=== PATIENT | male | born 1955 | race Caucasian/White ===

== ENCOUNTER 2017-07-25 06:55 | Inpatient (IN) | payer OTHER, SELFPAY ==
[2017-07-19 13:25] VITALS: BP 134/74; PULSE 65; RESP 16; TEMP 36.7; O2SAT 98; BMI 23.7
--- NOTE | 2017-07-19 13:29 | EKG12_ITS ---
Test Reason : Blood Pressure : / mmHG Vent. Rate : 069 BPM Atrial Rate : 069 BPM P-R Int : 134 ms QRS Dur : 088 ms QT Int : 402 ms P-R-T Axes : 041 004 046 degrees QTc Int : 430 ms Normal sinus rhythm Low voltage QRS Borderline ECG Confirmed by PIO KASPER, DMITRY ([id number]), editor news DAMIAN PIÑA ([id number]) on 07/23/2017 2:33:28 PM Referred By: Richard Ordoñez Confirmed By:DMITRY SUERO MD
[2017-07-25] VITALS (11 sets, daily range): BP systolic 110–156; BP diastolic 62–98; PULSE 48–73; RESP 14–18; TEMP 36.1–36.9; O2SAT 93–100; BMI 23.7; BMI 22.8
--- NOTE | 2017-07-25 | PROST_PTH ---
PATIENT: VIKTOR GAINES LOC: MS2 U#:[id number] AGE/SX: 62/M ROOM: [id number] RE07/25/[address]: Dr. Richard Ordoñez MD : [id number] BED: 1 DIS: 07/27/2017 SPEC #: [id number] RECD: 07/25/17 14:29 STATUS: ALLIE REYannick #: [id number] NICK: 07/25/17 00:[address]: Richard Ordoñez DEPT: SURGICAL PATHOLOGY RECD BY: Noe Soria ENTERED: 07/25/17 14:30 SP TYPE: PROSTATE OTHR DR: Dr. Telly Soto, DO Tissues: Prostate, NOS Procedures: Surgery Specimen Level HEADER OPERATION: Laparoscopic robotic prostatectomy, radical PRE-OP DIAGNOSIS: Prostate cancer, elevated PSA, BPH with obstruction TISSUE SUBMITTED: Prostate MICROSCOPIC DIAGNOSIS Prostate, radical prostatectomy: Prostatic adenocarcinoma. See cancer summary below. PROSTATE CANCER (RADICAL) SUMMARY: Procedure ? radical prostatectomy Prostate size ? 6 cm transversely, craniocaudally 4.5 cm and anterior-posteriorly 4.5 cm Prostate weight ? 97 gm Lymph node sampling ? no lymph nodes present Histologic type ? adenocarcinoma (acinar, not otherwise specified) Histologic grade (Babak Pattern): Primary pattern - 3 Secondary pattern - 3 Tertiary pattern - 6 Total Blairs score: Tumor Quantitation: Proportion (%) of prostate involved by tumor - <5% Tumor size ? left lobe 1 x 0.6 cm, right lobe 0.1 x 0.1 cm (measured microscopically for both right and left lobes). See comment. Extraprostatic extension ? not identified Seminal vesicle invasion - not identified Margins ? Apical margin focally involved by invasive carcinoma (right lobe). Treatment effect on carcinoma ? no known presurgical therapy. Lymph-Vascular invasion - not identified Perineural invasion ? present, focal and minimal Regional lymph nodes ? no lymph nodes submitted or found. Distant metastasis ? not applicable Additional pathologic findings ? high-grade prostatic intraepithelial neoplasia (HGPIN). - Chronic inflammation and atrophy. - Benign prostatic hyperplasia, glandular and stromal type. Ancillary studies ? not performed. PATHOLOGIC STAGE: pT2c pNx Mx The above summary is in compliance with [employer] [place] [employer] (CAP) Cancer Protocols Checklist and [place] Joint Committee on Cancer (AJCC), Staging Manual, 8th Ed. SJ:fidelia 07/27/17 COMMENT The tumor is present in the right lobe at the apical margin (block 2) and in the left lobe (slides 5, 7 and 9). Please make reference to previous specimen ([id number]) left prostate, base, core biopsy with diagnosis of adenocarcinoma. Case has been reviewed in consultation with Dr. Vazquez who concurs with the above diagnosis. IDC:AM MICROSCOPIC DESCRIPTION Slides are reviewed. GROSS DESCRIPTION Received in fixative is one container labeled with the patient's name and designated prostate. The specimen consists of a radical prostatectomy specimen weighing 97 gm. The prostate measures transversely 6 cm, craniocaudally 4.5 cm and anteroposteriorly 4.5 cm. The right seminal vesicle measures 2 x 1.5 x 0.5 cm and the right vas deferens measures 3 cm in length and 0.5 cm in diameter. The left seminal vesicle measures 2 x 1.5 x 0.5 cm and the left vas deferens measures 4 cm in length and 0.5 cm in diameter. The external surface including base of prostate is inked as follows: posterior surface prostate ? black, anterior surface ? yellow, right lateral surface including base? blue, left lateral surface including base ? green. The seminal vesicles are inked as follows: right seminal vesicle and vas deferens posterior surface ? black, anterior surface ? blue, left seminal vesicle and vas deferens posterior surface ? black, anterior surface ? green. Serial sections of the prostate reveal markedly enlarged right lobe pushing towards the left lobe. No mass lesion is identified. Damage Adjuster sections are submitted in 20 cassettes as follows: 1 ? right and left seminal vesicle and vas deferens, 2 ? apical margin enface, 3 ? bladder base margin enface, 4-9 ? prostate apical portion, 10-14 ? prostate middle portion, 15-20 ? prostate basal portion (cassettes 19 & 20 contains the most basal portion of the prostate). / SJ:fidelia 07/26/17 TC:0 CPT: 44996
[2017-07-25] MEDS: Cefazolin 2 GM in 0.9% Normal Saline 100 ML IV (08:44)
[2017-07-25] MEDS: Bupivacaine Mpf 0.5% 30 ML VIAL (13:09)
--- NOTE | 2017-07-25 13:10 | PCM.OPRPT ---
Problem List (1) Prostate cancer Status: Acute Report of Operation Date of Procedure: 07/25/17 Pre-Operative Diagnosis: Prostate cancer very large prostate Post-Operative Diagnosis: Same Surgery/Procedure Performed:: Laparoscopic robotic assisted radical prostatectomy. EMG monitoring the pelvic lymph nodes and the urethral sphincter. Suture suspension of the urethra to prevent urinary incontinence. Reconstruction of bladder neck Description of Surgical Findings:: 62-year-old male taken back to the operating room at the smooth induction of general anesthesia he is placed in dorsal lithotomy position we made a small incision above his umbilicus the abdomen was prepped and draped in usual sterile fashion. With a sick Veress needle into this into the peritoneal cavity and insufflated the peritoneal cavity with CO2 gas I then placed my camera trocar my right arm trocar left arm trocar and my second trocar we then docked the robot immediately getting into the abdomen there is some some adhesions from prior hernia surgery repair extensive amount of mesh then lay down more than expected throughout the lower abdomen after this was dissected out then I went posteriorly identify the right seminal vesicle traced this down to the vas deferens and dissected out the vas deferens and seminal vesicles in the right side posteriorly in the dissected out the left breast left seminal vesicle left vas deferens posteriorly. I then pulled out of the pelvis and then we incised the bladder flap and then entered the space of Retzius and dissected the bladder off the anterior abdominal wall again mesh had been laid down and extensively in the anterior abdominal wall almost way down to the pubic bone had to dissect the bladder off his mesh took quite some time to do this finally placed the bladder on traction with the fourth arm dissected the space above the prostate I then used the bipolar on the superficial dorsal vein I incised the right pelvic fascia over the prostate and dissected the prostate off the levator muscles I incised the left puboprostatic fascia and dissected the left side of the prostate off the of the levator muscles then I went and transected through the prostatic ligaments and the right side and the left side I then placed a stitch in the dorsal vein complex prostate was very large extremely large prostate. I then pulled back to the junction between the bladder and prostate switched to 30 down degree lens and then dissected between the bladder and the prostate and doing this and created a very large bladder neck in order to remove the entire prostate bladder neck was extremely large I did identify the right and left ureteral orifice also the bladder was quite large and floppy seems very stretched out from a chronic bladder outlet obstruction. After dissecting through the prostate and the bladder I got to the junction of the bladder and prostate posteriorly dissected down until I encountered the seminal vesicles and vas deferens then on the right side we pulled the prostate laterally I inside the swept the neurovascular bundles of the right side of the prostate took the pedicle with clips and then was able to sweep the neurovascular bundle off the right side of prostate sparing the nerve bundles on the right side very nicely we did monitor the nerves the pelvic nerves with EMG monitor placed a needle electrode into the abdomen needle electrode into the levator muscles and then stimulated and had an action potential and identified the the plexus of nerves on the right side and then same thing on the left side the same thing on the left side identify the plexus of nerves in the left side using EMG monitoring. Once both sides identified then I went back to the left side and transected through the pedicle the left side and then dissected the the neurovascular bundle off the left side the left side was more stuck could not really get his as much of a good dissection of the neurovascular bundle but the right side came up fairly nicely then went posteriorly and dissected up to the urethra then I came above and transected to the dorsal vein place an extra stitch in the dorsal vein to control bleeding I then transected through the urethra and transected to the extent extension of the nonbilious fascia posteriorly looked at the prostate very large this is all intact no proximal lesions were identified in an Endo Catch back and used suction to suction out the pelvis put an extra stitch in the dorsal vein because of some minor bleeding could identify a nice nerve sparing on the right side the left side was not as great as good we then checked the EMG monitoring again and had good stimulation from the right side and had some stimulation left side and then we recheck the urethral sphincter and was able to get a good relation the urethral sphincter I then used a V lock stitch to first reapproximate the bladder neck to the urethral stump with stitches I then used the double-arm BBV lock stitch to suture through the supra suture suspension of the urethra suspending the urethra the bladder neck running continuous fashion from the bladder neck urethra all the way to 12:00 once this was accomplished then there was still a large tennis racquet defect in the top of the bladder and I ran a third V lock stitch on the top of the bladder to close this defect once the bladder is completely closed after the reconstruction of the bladder neck then I put a catheter in the bladder it was flushed there was no leakage from any site is identified we did leave a drain next to the anastomosis we extracted the prostate to the umbilicus we closed both large sites we closed the variceal port with Josse saw Davies stitch and we closed the extraction site with interrupted stitches patient's anesthetic is currently being reversed and the catheter was in good position we flushed the catheter the catheter was flushing well with no blood and draining well I should end dictation. Type of Anesthesia:: General Drains: LANDON and sheppard - Admit VTE Documentation VTE Present on Admission: No VTE Mechan Device Prophylaxis: SCD's VTE Pharm Prophylaxis ordered?: No Reason prophylaxis not ordered:: Treatment Not Indicated
[2017-07-25] MEDS: Ketorolac 15 MG/ML Vial IV ×2 (14:15→20:41)
[2017-07-25] MEDS: Docusate Sodium 100 MG Capsule 200 MG PO ×2 (16:11→23:16)
[2017-07-25] MEDS: Ciprofloxacin 500 MG Tablet PO ×2 (16:11→23:16)
[2017-07-25] MEDS: 0.9% Normal Saline 1,000 ML 125 ML IV (17:41)
[2017-07-25] MEDS: 0.9% NaCl Peripheral Flush Adult/Peds IV (20:41)
--- NOTE | 2017-07-26 00:02 | NURSING ---
SAT AT BEDSIDE THEN STOOD AND WALKED IN ROOM 2 STAFF PRESENT FOR FIRST TIME UP. INITIALLY SLIGHTLY DIZZY BUT STATED IT PASSED AND PT GAIT STEADY. THEN RETURNED TO BED
[2017-07-26] MEDS: 0.9% Normal Saline 1,000 ML 125 ML IV (01:37)
[2017-07-26] MEDS: 0.9% NaCl Peripheral Flush Adult/Peds IV ×4 (01:38→21:03)
[2017-07-26] MEDS: Ketorolac 15 MG/ML Vial IV ×4 (01:39→21:02)
[2017-07-26 01:50] VITALS: BP 105/62; PULSE 76; RESP 16; TEMP 36.1; O2SAT 99
[2017-07-26] MEDS: Acetaminophen 500 MG Tablet PO (05:52)
--- NOTE | 2017-07-26 07:44 | PCM.PROGNOTE ---
Patient Problems: Active and Suspected Problems Prostate cancer (Acute) Subjective: doing well after radical. - Physical Exam General: Alert, Oriented x3, Cooperative HEENT: Atraumatic, PERRLA, EOMI, Normocephalic Neck: Supple, No JVD, Negative Carotid Bruits Lungs: Clear to auscultation, Normal air movement Cardiovascular: Regular rate, No murmurs Abdomen: Bowel Sounds Present, Soft, Non Tender Extremities: No edema, Capillary Refill Less than 3 Seconds Skin: No rashes, No breakdown Musculoskeletal: No Tenderness to Palpation of Joints or Extremities Neurological: Cranial nerves II-XII grossly intact Psych/Mental Status: Normal Affect, Appropriate Vital Signs Temp Pulse Resp BP Pulse Ox 97 F L 76 16 105/62 99 07/26/17 01:50 07/26/17 01:50 07/26/17 01:50 07/26/17 01:50 07/26/17 01:50 Oxygen Flow Rate (L/min) 1 Oxygen Delivery Method Nasal Cannula Weight: 66.179 kg Body Mass Index (BMI) 22.8 Intake and Output for Last 24 Hours 07/24/17 07/25/17 07/26/17 23:59 23:59 23:59 Intake Total 4547 / 4547 1298 / 1298 Output Total 2060 / 2060 900 / 900 Balance 2487 / 2487 398 / 398 Assessment/Plan Active and Suspected Problems Prostate cancer (Acute) heplock ivf adv diet ambulate.
[2017-07-26 07:45] VITALS: BP 108/60; PULSE 64; RESP 18; TEMP 36.8; O2SAT 99
--- NOTE | 2017-07-26 07:46 | PCM.DC.URO ---
Discharge Diet: Light diet - advance as tolerated Discharge Activity: Return to Normal Activity, May not drive while taking narcotic pain medications. Return to work on:: 09/06/17 May shower in (days): 1 Lifting Restrictions: 10 lbs. Call your doctor if your incision/area has: Continuous Slow Oozing, Sudden Increased Bleeding, Increased Pain/ Swelling, Increased Redness, Foul Smelling Discharge, Swelling at the incision site Call your doctor if you observe: Fever of 101 or Higher, Inability to have a bowel movement, Uncontrolled pain Suture Line Care: Avoid Pulling/Pushing, Avoid Pinching/Bending Catheter: Santiago to leg bag, Santiago to large bag Drain: Kiana Instructions: Discharge Instructions for Radical Prostatectomy Allergies/Adverse Reactions: Allergies No Known Allergies Allergy (Verified 07/19/17 13:11) Medications to take at Discharge Tetrahydrozoline HCl [Eye Drops] 15 ml OP DAILY 07/19/17 Ciprofloxacin [Cipro] 500 mg PO BID #14 tab 07/26/17 Docusate Sodium [Colace] 100 mg PO BID #20 cap 07/26/17 Hydrocodone/Acetaminophen [[place] 5-325 Tablet] 1 ea PO Q4H PRN PRN 4 Days #14 tab 07/26/17 The following prescriptions were given: Hydrocodone/Acetaminophen [[place] 5-325 Tablet] 1 ea PO Q4H PRN PRN 4 Days #14 tab PRN Reason: Pain Ciprofloxacin [Cipro] 500 mg PO BID #14 tab Docusate Sodium [Colace] 100 mg PO BID #20 cap Primary Care Physician: Telly Soto DO [Primary Care Provider] - Please Follow Up With: Richard Ordoñez MD When: SundayAugust 13 at 10 am to remove catheter. Proposed Discharge Date: 07/27/17
--- NOTE | 2017-07-26 07:50 | DCINST_ITS ---
Discharge Diet: Light diet - advance as tolerated Discharge Activity: Return to Normal Activity, May not drive while taking narcotic pain medications. Return to work on:: 09/06/17 May shower in (days): 1 Lifting Restrictions: 10 lbs. Call your doctor if your incision/area has: Continuous Slow Oozing, Sudden Increased Bleeding, Increased Pain/ Swelling, Increased Redness, Foul Smelling Discharge, Swelling at the incision site Call your doctor if you observe: Fever of 101 or Higher, Inability to have a bowel movement, Uncontrolled pain Suture Line Care: Avoid Pulling/Pushing, Avoid Pinching/Bending Catheter: Santiago to leg bag, Santiago to large bag Drain: [place] Instructions: Discharge Instructions for Radical Prostatectomy Allergies/Adverse Reactions: Allergies No Known Allergies Allergy (Verified 07/19/17 13:11) Medications to take at Discharge Tetrahydrozoline HCl [Eye Drops] 15 ml OP DAILY 07/19/17 Ciprofloxacin [Cipro] 500 mg PO BID #14 tab 07/26/17 Docusate Sodium [Colace] 100 mg PO BID #20 cap 07/26/17 Hydrocodone/Acetaminophen [[place] 5-325 Tablet] 1 ea PO Q4H PRN PRN 4 Days #14 tab 07/26/17 The following prescriptions were given: Hydrocodone/Acetaminophen [[place] 5-325 Tablet] 1 ea PO Q4H PRN PRN 4 Days #14 tab PRN Reason: Pain Ciprofloxacin [Cipro] 500 mg PO BID #14 tab Docusate Sodium [Colace] 100 mg PO BID #20 cap Primary Care Physician: Telly Soto DO [Primary Care Provider] - Please Follow Up With: Richard Ordoñez MD When: SundayAugust 13 at 10 am to remove catheter. Proposed Discharge Date: 07/27/17
[2017-07-26] MEDS: Ciprofloxacin 500 MG Tablet PO ×2 (09:11→21:02)
[2017-07-26] MEDS: Docusate Sodium 100 MG Capsule 200 MG PO ×2 (09:11→21:02)
--- NOTE | 2017-07-26 09:51 | CASEMGMT ---
CHART REVIEW: ANNELIESE Javier Adm Dx: Surgical Procedure 62 year old with prostate ca admitted for planned l/s robotic assisted radical prostatectomy 07/25/17. Pt is independent, has been up with nursing in the room. The patient is , drives, and works outside the home. The patient is established with PCP and urology. Clinical Review: (per documentation) -4 lap sites with steri strips, D/I, one site with op site, no drainage, abdomen soft, tender, bs normoactive, neg. flatus -Juan Luis left lower abd. draining sanguinous fluid -sheppard with pink urine, will go home with sheppard -1l O2 via n/c; sating 99% -tolerating diet Disposition: Home with support of family and with follow-up plans in place. ARVIND TaylorN, RN-BC, CCM
[2017-07-26 10:17] VITALS: O2SAT 98
[2017-07-26 12:04] VITALS: BP 109/55; PULSE 68; RESP 18; TEMP 36.7; O2SAT 99
[2017-07-26 19:52] VITALS: BP 123/59; PULSE 64; RESP 16; TEMP 36.8; O2SAT 97
[2017-07-27 02:24] VITALS: BP 152/64; PULSE 67; RESP 16; TEMP 36.3; O2SAT 98
--- NOTE | 2017-07-27 07:25 | PCM.DC.SUM ---
Discharge Date and Diagnosis - Problem List Patient Problems: Active and Suspected Problems Prostate cancer (Acute) Date of Admission: 07/25/17 Date of Discharge: 07/27/17 - Primary Discharge Diagnosis Active and Suspected Problems Prostate cancer (Acute) Hospital Course and Treatment Operations: - - robotic radical prostatectomy Procedures: None Summary of Care Provided: The patient is a 62 year old male with prostate cancer s/p robotic radical prostatectomy, doing well rober reg diet, ambulating, pain under control, + flatus home with sheppard. Discharge Diet: Light diet - advance as tolerated Discharge Activity: Return to Normal Activity, May not drive while taking narcotic pain medications. Return to work on:: 09/06/17 May shower in (days): 1 Call your doctor if your incision/area has: Continuous Slow Oozing, Sudden Increased Bleeding, Increased Pain/ Swelling, Increased Redness, Foul Smelling Discharge, Swelling at the incision site Call your doctor if you observe: Fever of 101 or Higher, Inability to have a bowel movement, Uncontrolled pain Suture Line Care: Avoid Pulling/Pushing, Avoid Pinching/Bending Catheter: Sheppard to leg bag, Sheppard to large bag Drain: Altha Home Medications: Medications to take at Discharge Tetrahydrozoline HCl [Eye Drops] 15 ml OP DAILY 07/19/17 Ciprofloxacin [Cipro] 500 mg PO BID #14 tab 07/26/17 Docusate Sodium [Colace] 100 mg PO BID #20 cap 07/26/17 Hydrocodone/Acetaminophen [[place] 5-325 Tablet] 1 ea PO Q4H PRN PRN 4 Days #14 tab 07/26/17 Following Prescrptions Were Given to Patient: Hydrocodone/Acetaminophen [[place] 5-325 Tablet] 1 ea PO Q4H PRN PRN 4 Days #14 tab PRN Reason: Pain Ciprofloxacin [Cipro] 500 mg PO BID #14 tab Docusate Sodium [Colace] 100 mg PO BID #20 cap Primary Care Physician: Telly Soto DO [Primary Care Provider] - Please Follow Up With: Richard Ordoñez MD When: SundayAugust 13 at 10 am to remove catheter. Patient Instructions: Discharge Instructions for Radical Prostatectomy Meaningful Use Info Meaningful Use Diagnoses (Choose all that apply): None applicable
[2017-07-27 08:10] VITALS: O2SAT 97
[2017-07-27 08:36] VITALS: BP 126/76; PULSE 64; RESP 18; TEMP 36.8; O2SAT 98
[2017-07-27] MEDS: Docusate Sodium 100 MG Capsule 200 MG PO (08:39)
[2017-07-27] MEDS: Ciprofloxacin 500 MG Tablet PO (09:33)
[2017-07-27 14:35] VITALS: BP 141/84; PULSE 67; RESP 18; TEMP 36.4; O2SAT 98
== END 2017-07-27 13:40 | disposition home or self-care (01) | DRG 707 ==
LOC: ACINP 06:56 → MS2 09:34
PROVIDERS: Admitting Provider Urology; Family Provider Student in an Organized Health Care Education/Training Program; PCP Student in an Organized Health Care Education/Training Program; Visit Provider Urology
PROC: 0VT04ZZ Resection of Prostate, Percutaneous Endoscopic Approach (ICD-10-PCS; CPT 55866; principal; 2017-07-25 08:10)
DX: C61 Malignant neoplasm of prostate (principal); N13.8 Other obstructive and reflux uropathy; N40.1 Benign prostatic hyperplasia with lower urinary tract symptoms
CPT/HCPCS: 88309; J3010; J7030; J7120; A4216; J2405

== ENCOUNTER → 2017-09-20 12:08 | Outpatient (CLI) | payer OTHER, SELFPAY ==
[2017-09-20 12:49] LABS: PSA,Total- Diagnostic < 0.01 ng/mL (0.0-4.0)
== END ==
PROVIDERS: Family Provider Student in an Organized Health Care Education/Training Program; PCP Student in an Organized Health Care Education/Training Program; Visit Provider Urology
DX: C61 Malignant neoplasm of prostate (principal)
CPT/HCPCS: 36415; 84153

== ENCOUNTER → 2017-12-28 13:37 | Outpatient (CLI) | payer OTHER, SELFPAY ==
[2017-12-28 15:21] LABS: PSA,Total- Diagnostic < 0.01 ng/mL (0.0-4.0)
== END ==
PROVIDERS: Family Provider Student in an Organized Health Care Education/Training Program; PCP Student in an Organized Health Care Education/Training Program; Visit Provider Urology
DX: C61 Malignant neoplasm of prostate (principal)
CPT/HCPCS: 36415; 84153

== ENCOUNTER → 2018-07-05 12:11 | Outpatient (CLI) | payer OTHER, SELFPAY ==
[2017-07-25 15:41] VITALS: BMI 22.8
[2018-07-05 13:55] LABS: PSA,Total- Diagnostic < 0.01 ng/mL (0.0-4.0)
== END ==
PROVIDERS: Family Provider Student in an Organized Health Care Education/Training Program; PCP Student in an Organized Health Care Education/Training Program; Referring Provider Urology; Visit Provider Urology
DX: C61 Malignant neoplasm of prostate (principal)
CPT/HCPCS: 36415; 84153

== ENCOUNTER → 2019-01-06 10:25 | Outpatient (CLI) | payer OTHER, SELFPAY ==
[2019-01-06 11:43] LABS: PSA,Total- Diagnostic < 0.01 ng/mL (0.0-4.0)
== END ==
PROVIDERS: Family Provider Student in an Organized Health Care Education/Training Program; PCP Student in an Organized Health Care Education/Training Program; Referring Provider Urology; Visit Provider Urology
DX: C61 Malignant neoplasm of prostate (principal)
CPT/HCPCS: 36415; 84153

== ENCOUNTER → 2019-07-03 13:50 | Outpatient (CLI) | payer OTHER, SELFPAY ==
[2019-07-03 15:09] LABS: PSA,Total- Diagnostic < 0.01 ng/mL (0.0-4.0)
== END ==
PROVIDERS: PCP Student in an Organized Health Care Education/Training Program; Referring Provider Urology; Visit Provider Urology
DX: C61 Malignant neoplasm of prostate (principal)
CPT/HCPCS: 36415; 84153

== ENCOUNTER → 2020-01-01 13:57 | Outpatient (CLI) | payer OTHER, SELFPAY ==
[2020-01-01 15:06] LABS: PSA,Total- Diagnostic < 0.01 ng/mL (0.0-4.0)
== END ==
PROVIDERS: PCP Student in an Organized Health Care Education/Training Program; Referring Provider Urology; Visit Provider Urology
DX: C61 Malignant neoplasm of prostate (principal)
CPT/HCPCS: 36415; 84153

== ENCOUNTER → 2020-12-29 12:14 | Outpatient (CLI) | payer OTHER, SELFPAY ==
[2017-07-25 15:41] VITALS: BMI 22.8
[2020-12-29 14:24] LABS: PSA,Total- Diagnostic < 0.01 ng/mL (0.0-4.0)
== END ==
PROVIDERS: PCP Student in an Organized Health Care Education/Training Program; Referring Provider Nurse Practitioner Adult Health; Visit Provider Nurse Practitioner Adult Health
DX: C61 Malignant neoplasm of prostate (principal)
CPT/HCPCS: 36415; 84153

== ENCOUNTER → 2021-01-06 17:11 | Outpatient (CLI) | payer OTHER, SELFPAY ==
[2021-01-06 17:25] LABS: Bacteria 0 SEEN /hpf (None Seen); Mucous, Urine 0 SEEN /hpf (<or=2+); White Blood Cells 0 SEEN /hpf (0-5)
[2021-01-06 17:42] LABS: Color, Urine Yellow (Yellow); Glucose, Dipstick Normal (Normal); Ketone-Dipstick Negative (Negative); Leukocyte Esterase-Dipstick Negative /ul (Negative); Nitrite-Dipstick Negative (Negative); Occult Blood-Urine 25 /ul (Negative); Protein-Dipstick Negative (Negative); Specific Gravity, Urine 1.005 (1.002-1.030); Urine Bilirubin Dipstick Negative (Negative); Urine Clarity Clear (Clear); Urine Urobilinogen Normal (Normal); Urine pH 6.5 (5.0 - 8.0)
[2021-01-06 18:31] LABS: Red Blood Cells-Urine 0-5 SEEN /hpf (0-5); Squamous Epithelial Cells - UA 0-5 SEEN /hpf (0-5)
== END ==
PROVIDERS: PCP Student in an Organized Health Care Education/Training Program; Visit Provider Nurse Practitioner Adult Health
DX: R31.29 Other microscopic hematuria (principal)
CPT/HCPCS: 81001

== ENCOUNTER → 2021-12-27 | Outpatient (CLI) | payer OTHER, SELFPAY ==
[2021-12-27 15:39] LABS: PSA,Total- Diagnostic < 0.01 ng/mL (0.0-4.0)
== END | disposition home or self-care (01) ==
LOC: LAB 13:42
PROVIDERS: PCP Student in an Organized Health Care Education/Training Program; Referring Provider Urology; Visit Provider Urology
DX: C61 Malignant neoplasm of prostate (principal)
CPT/HCPCS: 36415; 84153

== ENCOUNTER → 2022-01-13 | Outpatient (CLI) | payer OTHER, SELFPAY ==
[2022-01-13 14:34] LABS: Absolute Lymphocyte Count 1.36 X10^3/uL (0.83-4.51); Absolute Neutrophil Count 2.6 X10^3/uL (2.0-7.7); Basophil# 0.04 X10^3/uL; Basophil% 0.8 % (0-1); Eosinophil# 0.27 X10^3/uL; Eosinophils% 5.6 % (0-5); Hematocrit 35.8 % (40-54); Hemoglobin 11.2 g/dL (13.0-16.5); Lymphocyte # 1.36 X10^3/ul (0.83-4.51); Mean Corp Hgb Conc 31.3 g/dL (32-36); Mean Corpuscular Hgb 27.5 pg (27.0-32.0); Mean Corpuscular Volume 87.7 fL (80-94); Monocyte# 0.55 X10^3/uL; Monocyte% 11.3 % (0-10); NRBC Flagged by Analyzer 0 % (0-5); Neutrophil # 2.63 X10^3/uL (2.7-7.7); Neutrophil % 54.1 % (47-70); Platelet Count 248 K/mm3 (150-450); RBC Distribution Width CV 13.3 % (11.6-14.6); Red Blood Count 4.08 M/mm3 (4.6-6.2); White Blood Count 4.9 K/mm3 (4.4-11.0)
[2022-01-13 15:02] LABS: Albumin, Serum 3.5 g/dL (3.2-5.0); Anion Gap 6 (5-15); BUN 23 mg/dL (7-18); BUN/Creat Ratio 22.3 RATIO (10-20); Calcium,Total 8.8 mg/dL (8.5-10.1); Chloride 105 mmol/L (98-107); Creatinine, Serum 1.03 mg/dL (0.70-1.30); EST Glomerular Filtration Rate 76 mL/min (>60); Est Glom Filt Rate - Afr Amer 92 mL/min (>60); Glucose 88 mg/dL (74-106); Sodium Level 139 mmol/L (136-145)
[2022-01-13 15:08] LABS: Hemoglobin A1c 5.4 % (3.8-5.6)
== END | disposition home or self-care (01) ==
LOC: LAB 13:34
PROVIDERS: PCP Student in an Organized Health Care Education/Training Program; Referring Provider Physician Assistant Surgical; Visit Provider Physician Assistant Surgical
DX: Z01.818 Encounter for other preprocedural examination (principal)
CPT/HCPCS: 36415; 80048; 82040; 83036; 85025

== ENCOUNTER → 2023-01-04 | Outpatient (CLI) | payer OTHER, SELFPAY ==
[2023-01-04 15:06] LABS: PSA,Total- Diagnostic < 0.01 ng/mL (0.0-4.0)
== END | disposition home or self-care (01) ==
PROVIDERS: PCP Physician Assistant; Referring Provider Urology; Visit Provider Urology
DX: Z85.46 Personal history of malignant neoplasm of prostate (principal)
CPT/HCPCS: 36415; 84153

== ENCOUNTER → 2024-01-15 | Outpatient (CLI) | payer MEDICARE, OTHER, SELFPAY ==
[2024-01-15 15:16] LABS: PSA,Total - Annual Screen < 0.01 ng/mL (0.00-4.00)
== END | disposition home or self-care (01) ==
LOC: LAB 13:41
PROVIDERS: PCP Physician Assistant; Referring Provider Urology; Visit Provider Urology
DX: Z12.5 Encounter for screening for malignant neoplasm of prostate (principal)
CPT/HCPCS: 36415; 84153; G0103

== ENCOUNTER → 2025-01-14 | Outpatient (CLI) | payer MEDICARE, OTHER, SELFPAY ==
[2025-01-14 17:40] LABS: PSA,Total- Diagnostic < 0.02 ng/mL (0.00-4.00)
== END | disposition home or self-care (01) ==
PROVIDERS: Referring Provider Urology; Visit Provider Urology
DX: C61 Malignant neoplasm of prostate (principal)
CPT/HCPCS: 36415; 84153